=== PATIENT | female | born 1995 | race Caucasian/White ===

== ENCOUNTER 2022-09-16 23:56 | Emergency (ER) | payer BC, MEDICAID, SELFPAY ==
[2022-09-17] VITALS: BP 109/76; PULSE 79; RESP 18; TEMP 36.5; O2SAT 98; BMI 19.7
--- NOTE | 2022-09-17 00:05 | PC.NURSE ---
pt presents to ED c/o pain to right hand. pt states she accidentally hit a wall. unable to move fingers d/t pain. no injury to wrist. ice applied. 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
--- NOTE | 2022-09-17 00:28 | XR_ITS ---
The [address] [address] Patient Name: CALVIN STONE MRN: [id number] date: 1995 Sex: F Assigned Patient Location: ER Current Patient Location: ED.MAIN Accession/Order Number: [id number] Exam Date: 09/17/2022 00:37 Report Date: 09/17/2022 00:53 At the request of: JEET CORRAL Procedure: XR hand RT min 3V EXAM: XR hand RT min 3V HISTORY: The patient is a 27-year-old female with injury COMPARISON: None. FINDINGS: The right hand is radiographically negative with no evidence of fracture, dislocation, cortical discontinuities, or other osseous or articular abnormalities. Specifically, no abnormalities are seen of the long finger. XR/XR hand RT min 3V IMPRESSION: Negative. Electronically authenticated by: FRED MCLEOD Date: 09/17/2022 00:53
--- NOTE | 2022-09-17 00:28 | ED_ITS ---
HPI - Extremity Injury (Upper) General Chief Complaint: Extremity Injury, Upper Time Seen by Provider: 09/17/22 00:19 Source: patient Mode of arrival: walk-in Limitations: no limitations History of Present Illness HPI narrative: states she mistakenly struck her hand on the door. Now complains of pain of her right hand. No numbness or weakness. Denies other injury MD complaint: injury to: Reports right and hand Related Data Home Medications Medication Instructions Recorded Confirmed No Known Home Medications 09/17/22 09/17/22 Allergies Allergy/AdvReac Type Severity Reaction Status Date / Time No Known Drug Allergies Allergy Verified 09/17/22 00:02 Review of Systems ROS Status of ROS 10 or more systems reviewed and unremarkable except as noted in history and below [facility] Social History Smoking status: Former smoker Exam Constitutional Vital Signs, click to edit/add: Last Vital Signs Temp 97.7 F 09/17/22 00:00 Pulse 79 09/17/22 00:00 Resp 18 09/17/22 00:00 BP 109/76 09/17/22 00:00 Pulse Ox 98 09/17/22 00:00 O2 Del Method Room Air 09/17/22 00:00 Common normals: no apparent distress, oriented x3, no limitations and healthy appearing Eye Common normals: EOMs intact bilaterally, conjunctivae normal and no scleral icterus Respiratory Common normals: normal respiratory effort, no retractions and no use of accessory muscles Cardio Common normals: regular rate, regular rhythm, S1 normal heart sound and S2 normal heart sound Extremity Other: mild tenderness right 5th MC. No swelling Neuro Common normals: oriented x3, CN's II-XII intact bilaterally, moves all extremities, no focal motor deficits and no sensory deficits noted Psych Appearance: grossly normal Course Vital Signs Vital signs: Vital Signs Temperature 97.7 F 09/17/22 00:00 Pulse Rate 79 09/17/22 00:00 Respiratory Rate 18 09/17/22 00:00 Blood Pressure 109/76 09/17/22 00:00 Pulse Oximetry 98 09/17/22 00:00 Oxygen Delivery Method Room Air 09/17/22 00:00 Temperature 97.7 F 09/17/22 00:00 Pulse Rate 79 09/17/22 00:00 Respiratory Rate 18 09/17/22 00:00 Blood Pressure 109/76 09/17/22 00:00 Pulse Oximetry 98 09/17/22 00:00 Oxygen Delivery Method Room Air 09/17/22 00:00 MDM - Extremity Injury (Upper) MDM Narrative Medical decision making narrative: presents after hand injury striking the door way. Mild tenderness of the hand. No obvious swelling or discoloration. xray neg for fracture. Patient discharged home with working diagnosis of contusion Discharge Plan Discharge Chief Complaint: Extremity Injury, Upper Clinical Impression: Contusion of hand Prescriptions / Home Meds: No Action No Known Home Medications Instructions: Contusion in Adults (ED) Stand Alone Forms: Portal Instructions
== END 2022-09-17 01:13 | disposition home or self-care (01) ==
PROVIDERS: Emergency Provider Internal Medicine
DX: S60.221A Contusion of right hand, initial encounter (principal); W22.8XXA Striking against or struck by other objects, initial encounter; Z87.891 Personal history of nicotine dependence
CPT/HCPCS: 73130; 99283